=== PATIENT | female | born 1935 | race African-American/Black ===

== ENCOUNTER 2017-02-24 15:10 | Inpatient (IN) | payer OTHER, MEDICAID ==
[~2017-02-24] VITALS: Ht 152.4 cm; Wt 63.5 kg
[2017-02-24 16:20] LABS: BASOPHILS % 0.6 % (0.0-2.0); HEMATOCRIT. 41.1 % (36.0-48.0); HEMOGLOBIN. 13.5 g/dL (12.0-16.0); LYMPHOCYTES % 31.9 % (20.0-50.0); MEAN CORPUSCULAR HEMOGLOBIN 28.2 pg (28.0-32.0); MEAN CORPUSCULAR VOLUME 85.8 fL (81.0-99.0); MEAN PLATELET VOLUME 8.5 fl (7.4-10.4); MONOCYTES % 7.9 % (2.0-8.0); NEUTROPHILS % 58.6 % (40.0-76.0); PLATELET 223 x1000/uL (130-400); RED BLOOD CELL COUNT 4.79 mill/uL (4.2-5.4); RED CELL DISTRIBUTION WIDTH 14.2 % (11.6-14.6)
[2017-02-24 16:24] LABS: CHLORIDE 107 mEq/L (98-107); PROTHROMBIN TIME 10.7 sec (9.4-11.6)
[2017-02-24 16:26] LABS: CARBON DIOXIDE 27 mEq/L (21-32); CLARITY URINE CLEAR (CLEAR); COLOR URINE YELLOW (YELLOW); GLUCOSE URINE NEGATIVE (NEGATIVE); KETONES URINE NEGATIVE (NEGATIVE); LEUKOCYTE ESTERASE URINE 1+ (NEGATIVE); NITRITE URINE NEGATIVE (NEGATIVE); OCCULT BLOOD URINE NEGATIVE (NEGATIVE); PROTEIN URINE NEGATIVE (NEGATIVE); SPECIFIC GRAVITY URINE 1.011 (1.005-1.030); UROBILINOGEN URINE 0.2 E.U./dL (0.2-1.0)
[2017-02-24 16:34] LABS: TROPONIN I < 0.02 ng/mL (0.00-0.04)
[2017-02-24 16:43] LABS: *AMPHETAMINES SCREEN URINE NEGATIVE (NEGATIVE); *BARBITURATES SCREEN URINE NEGATIVE (NEGATIVE); *BENZODIAZEPINES SCREEN URINE NEGATIVE (NEGATIVE); *COCAINE SCREEN URINE NEGATIVE (NEGATIVE); CANNABINOID URINE SCREEN NEGATIVE (NEGATIVE); METHADONE URINE SCREEN NEGATIVE (NEGATIVE); OPIATES URINE SCREEN NEGATIVE (NEGATIVE); PHENCYCLIDINE URINE SCREEN NEGATIVE (NEGATIVE)
[2017-02-24] MEDS ORDERED: BENAZEPRIL 10MG TABLET PO ONE (22:15)
[2017-02-24] MEDS ORDERED: IPRATROPIUM/ALBUTEROL 0.5-3(2.5)MG/3ML NEB INH PRN (23:30)
[2017-02-24] MEDS ORDERED: LORAZEPAM 2MG/ML CPJ IV PRN (23:30)
[2017-02-24] MEDS ORDERED: ACETAMINOPHEN 650MG SUPP PR PRN (23:30)
[2017-02-24] MEDS ORDERED: DIPHENHYDRAMINE 50MG/ML VIAL IV PRN (23:30)
[2017-02-24] MEDS ORDERED: HYDROCODONE/ACETAMINOPHEN 5/325MG TABLET PO PRN (23:30)
[2017-02-24] MEDS ORDERED: MORPHINE SULFATE 2 MG/ML CPJ (NOT FOR IM USE) IV PRN (23:30)
[2017-02-24] MEDS ORDERED: CLONIDINE 0.1MG TABLET PO PRN (23:30)
[2017-02-24] MEDS ORDERED: ONDANSETRON HCL 4MG/2ML VIAL IV PRN (23:30)
[2017-02-25] VITALS (8 sets, daily range): BP systolic 118–203; BP diastolic 58–84
[2017-02-25] MEDS ORDERED: AMLODIPINE 10MG TABLET PO SCH (01:07)
[2017-02-25] MEDS: METOPROLOL TARTRATE 25MG TABLET PO SCH ×3 (01:15→17:48)
[2017-02-25 07:15] LABS: HEMOGLOBIN. 11.8 g/dL (12.0-16.0); MEAN CORPUSCULAR VOLUME 85.2 fL (81.0-99.0); MEAN PLATELET VOLUME 8.5 fl (7.4-10.4); PLATELET 199 x1000/uL (130-400); RED BLOOD CELL COUNT 4.23 mill/uL (4.2-5.4); RED CELL DISTRIBUTION WIDTH 14.2 % (11.6-14.6)
[2017-02-25 07:33] LABS: CARBON DIOXIDE 28 mEq/L (21-32); CHLORIDE 108 mEq/L (98-107); CREATINE KINASE 93 IU/L (26-192); HDL CHOLESTEROL 49 mg/dL (40-59); LDL CHOLESTEROL 88 mg/dL (5-100)
[2017-02-25 07:39] LABS: TROPONIN I < 0.02 ng/mL (0.00-0.04)
[2017-02-25] MEDS ORDERED: NITROFURANTOIN 100MG M/M CAPSULE PO SCH (09:00)
[2017-02-25] MEDS ORDERED: FUROSEMIDE 40MG/4ML VIAL IV SCH (09:00)
[2017-02-25] MEDS ORDERED: LISINOPRIL 5MG TABLET PO SCH (09:00)
[2017-02-25] MEDS ORDERED: LISINOPRIL 20MG TABLET PO SCH (09:00)
[2017-02-25] MEDS ORDERED: NIFEDIPINE XL 30MG TAB PO SCH (09:00)
[2017-02-25 09:59] LABS: CREATINE KINASE MB FRACTION 1.7 ng/mL (0.5-3.6); T4 FREE 1.01 ng/dL (0.76-1.46)
[2017-02-25] MEDS ORDERED: ENOXAPARIN 40MG/0.4ML SYR SUBCUT SCH (10:00)
[2017-02-25] MEDS ORDERED: ASPIRIN 81MG TABLET PO SCH (10:00)
[2017-02-25 13:25] LABS: PLATELET ESTIMATE NORMAL
[2017-02-25] MEDS ORDERED: HYDRALAZINE HCL 50MG TABLET PO SCH (14:00)
[2017-02-25 16:02] LABS: CREATINE KINASE 101 IU/L (26-192); CREATINE KINASE MB FRACTION 1.2 ng/mL (0.5-3.6); TROPONIN I < 0.02 ng/mL (0.00-0.04)
== END 2017-02-25 21:30 | disposition home or self-care (01) | DRG 305 ==
LOC: ER 15:10 → 5WST 22:04 → EDBEDREQ 22:26 → ENRESERV 22:28
PROVIDERS: ADMIT Internal Medicine; ATTEND Internal Medicine
DX: I16.0 Hypertensive urgency (principal); E44.1 Mild protein-calorie malnutrition; E11.9 Type 2 diabetes mellitus without complications; J98.11 Atelectasis; I25.10 Atherosclerotic heart disease of native coronary artery without angina pectoris; I10 Essential (primary) hypertension; K21.9 Gastro-esophageal reflux disease without esophagitis; E78.5 Hyperlipidemia, unspecified; M19.90 Unspecified osteoarthritis, unspecified site; K57.90 Diverticulosis of intestine, part unspecified, without perforation or abscess without bleeding; Z90.710 Acquired absence of both cervix and uterus; Z86.73 Personal history of transient ischemic attack (TIA), and cerebral infarction without residual deficits; Z80.9 Family history of malignant neoplasm, unspecified; Z83.3 Family history of diabetes mellitus; Z85.3 Personal history of malignant neoplasm of breast; Z68.27 Body mass index [BMI] 27.0-27.9, adult; Z91.14 Patient's other noncompliance with medication regimen
CPT/HCPCS: 36415; 71010; 71250; 80053; 80061; 80305; 81001; 82550; 82553; 83036; 83690; 83880; 84439; 84443; 84484; 85025; 85379; 85610; 85651; 93005; 93306; 93970; 99285; J1650; J1940

== ENCOUNTER 2022-03-22 14:18 | Emergency (ER) | payer OTHER, MEDICAID ==
[~2022-03-22] VITALS: Ht 167.6 cm; Wt 63.0 kg
[2022-03-22] MEDS ORDERED: SODIUM CHLORIDE 0.9% 500 ML IV ONE (15:00)
[2022-03-22 15:29] LABS: HEMOGLOBIN. 11.7 g/dL (12.0-16.0); LYMPHOCYTES % 31.4 % (20.0-50.0); MEAN CORPUSCULAR HEMOGLOBIN 28.5 pg (28.0-32.0); MEAN PLATELET VOLUME 8.5 fl (7.4-10.4); MONOCYTES % 11.6 % (2.0-8.0); PLATELET 239 x1000/uL (130-400); RED BLOOD CELL COUNT 4.09 mill/uL (4.2-5.4); RED CELL DISTRIBUTION WIDTH 13.6 % (11.6-14.6)
[2022-03-22 15:30] LABS: CHLORIDE 101 mEq/L (98-107)
[2022-03-22] MEDS ORDERED: POTASSIUM CHLORIDE 20MEQ/PACKET PO NR (16:45)
[2022-03-22] MEDS ORDERED: POTASSIUM CHLORIDE INJ 30 MEQ in DEXT 5%/0.9% NACL 1,000 ML IV NR (16:45)
[2022-03-22 17:17] LABS: BG CARBOXYHEMOGLOBIN 0.6 % (0.5-1.5); BG DEOXYHEMOGLOBIN 4.8 % (0.0-5.0); BG HCO3 ACT 26.6 mmol/L (22.0-26.0); BG METHEMOGLOBIN 0.2 % (0.0-1.5); BG OXYGEN SATURATION 95.2 % (92.0-98.5); BG OXYHEMOGLOBIN 94.4 % (94.0-97.0); BG PCO2 41.8 mmHg (35.0-45.0); BG PH 7.422 (7.350-7.450); BG PO2 78.3 mmHg (75.0-100.0); BG SAMPLE SITE RIGHT BRACHIAL; BG TOTAL HEMOGLOBIN 12.3 g/dL (12.0-18.0); BG VENT MODE ROOM AIR
[2022-03-22 20:58] VITALS: BP 141/78
== END 2022-03-22 21:05 | disposition short-term general hospital (02) ==
LOC: ER 15:23
DX: E87.6 Hypokalemia (principal); R06.09 Other forms of dyspnea; I10 Essential (primary) hypertension; E11.9 Type 2 diabetes mellitus without complications; M19.90 Unspecified osteoarthritis, unspecified site; Z86.73 Personal history of transient ischemic attack (TIA), and cerebral infarction without residual deficits; Z85.3 Personal history of malignant neoplasm of breast; Z20.822 Contact with and (suspected) exposure to COVID-19
CPT/HCPCS: 36415; 36600; 71045; 80053; 82375; 82805; 83735; 83880; 84484; 85025; 93005; 96361; 96365; 99285; J3480; J7042